=== PATIENT | male | born 1995 | race Caucasian/White ===

== ENCOUNTER 2024-10-04 11:58 | Inpatient (IN) | payer BC ==
[2024-10-04 12:34] LABS: #Basophils 0.06 10x3/uL (0.0-0.2); %Basophils 0.4 % (0.0-1.0); %Eosinophils 0.4 % (0.0-10.0); %Lymphocytes 12.6 % (21.0-51.0); %Monocytes 8.7 % (0.0-10.0); %Neutrophils 77.4 % (42.0-75.0); Hematocrit 45.6 % (42.0-52.0); Hemoglobin 14.3 g/dL (14.0-18.0); Mean Corpuscular HGB CONC 31.4 g/dL (32.0-36.0); Mean Corpuscular Hemoglobin 23.8 pg (27.0-31.0); Mean Platelet Volume 8.4 fL (7.4-10.4); Platelet Count 467 10x3/uL (130-400); RBC Distribution Width 13.9 % (11.5-14.5)
[2024-10-04 13:07] LABS: ALT (SGPT) 38 U/L (8-55); AST (SGOT) 25 U/L (5-34); Albumin 3.7 g/dL (3.5-5.0); Alkaline Phosphatase 109 U/L (40-110); Anion Gap 17 mmol/L (10-20); BUN (Urea Nitrogen) 11 mg/dL (8.9-20.6); Bilirubin, Total 0.3 mg/dL (0.2-1.2); Calc. Creatinine Clearance 0 mL/min (70-130); Calcium 10.2 mg/dL (7.8-10.44); Carbon Dioxide 23 mmol/L (22-29); Chloride 97 mmol/L (98-107); Estimated GFR 99; Globulin 6.1 g/dL (2.4-3.5); Glucose 95 mg/dL (70-105); Lipase 20 U/L (8-78); Magnesium 2.2 mg/dL (1.6-2.6); Protein, Total 9.8 g/dL (6.0-8.3); Sodium 132 mmol/L (136-145)
[2024-10-04] MEDS ORDERED: Cefepime 2 GM VIAL ONE (13:13)
[2024-10-04] MEDS ORDERED: Sodium Chloride 0.9% 100 ML ONE (13:13)
[2024-10-04] MEDS ORDERED: Lidocaine Viscous Sol 2% 15 ml UD Cup ONE (13:47)
[2024-10-04 15:09] LABS: HIV (1/2) Antibody/Antigen NONREACTIVE (NonReactive); HIV 1/2 INDEX 0.08 S/CO (<1.00)
[2024-10-04] MEDS ORDERED: Calcium Carbonate 500 MG ChewTAB PO PRN (15:13)
[2024-10-04] MEDS ORDERED: Ondansetron PF 4 MG/2 ML Vial IVP PRN (15:13)
[2024-10-04] MEDS ORDERED: Ondansetron ODT 4 MG TAB PO PRN (15:13)
[2024-10-04 15:20] LABS: Bacteria/HPF None Seen HPF (None Seen); Bilirubin Negative (Negative); Blood, Urine Negative (Negative); CAUTI Indications for Culture Fever or rigors; Clarity Clear (Clear); Glucose, Urine (Dipstick) Normal (Negative); Ketone, Urine 10 mg/dL (Negative); Leukocyte Negative Leu/uL (Negative); Nitrite Negative (Negative); Protein, Urine (Dipstick) 30 mg/dL (Neg-Trace); RBC/HPF 0-3 HPF (0-3); Specific Gravity, Urine 1.015 (1.002-1.036); Squamous Epithelial None Seen HPF (0-3); Urobilinogen Normal mg/dL (Less than 2); WBC/HPF 0-3 HPF (0-3); pH, Urine 5.5 (5.0-9.0)
[2024-10-04 15:23] LABS: Urine Culture Reflex No No
[2024-10-04 19:25] LABS: Syphilis Antibody Nonreactive (Nonreactive); Syphilis Antibody Index 0.16 S/CO (<1.00 Non-Reactive)
[2024-10-04 20:12] VITALS: BMI 23.3
[2024-10-04] MEDS: Nystatin 500,000 UNITS/5 ML UDCUP SSW SCH (20:29)
[2024-10-04] MEDS: Acetaminophen 325 MG TAB PO PRN (20:29)
[2024-10-04] MEDS: Lidocaine Viscous Sol 2% 15 ml UD Cup SSP PRN (20:31)
[2024-10-04] MEDS ORDERED: Vancomycin 1 GM in Sodium Chloride 0.9% 250 ML 250 ML IVPB SCH (21:00)
[2024-10-04] MEDS ORDERED: Benzocaine/Menthol 1 LOZ LOZ PO PRN (22:16)
[2024-10-04] MEDS ORDERED: GUAIFENESIN SF SOLN 200 MG/10 ML UDCUP PO PRN (22:16)
[2024-10-04] MEDS: Cefepime 2 GM in Sodium Chloride 0.9% 100 ML IVPB SCH (22:17)
[2024-10-04] MEDS: Sodium Chloride 0.9% 1,000 ML IV SCH (22:19)
[2024-10-04] MEDS: traMADol HCl 50 MG TAB PO PRN (22:28)
[2024-10-04] MEDS: Benzonatate 100 MG CAP PO PRN (22:28)
[2024-10-05] MEDS: VANCOMYCIN 1.25 GM/250 ML BAG 1.25 GM in Premix 1 BAG IVPB SCH (00:48)
[2024-10-05] MEDS: Ketorolac Tromethamine 30 MG (1 mL) VIAL IVP PRN (00:50)
[2024-10-05] MEDS: Vancomycin (BATCH) 1.75 GM in Premix 1 BAG IVPB SCH (01:09)
[2024-10-05] MEDS: Sodium Chloride 0.9% 1,000 ML IV SCH (01:10)
[2024-10-05] MEDS: Clindamycin/D5W 900 MG in Premix 1 BAG IVPB SCH (01:10)
[2024-10-05] MEDS: Lidocaine 2% Viscous Solution 10 ML, Aluminum & Magnesium Hydroxide 30 ML SSW SCH (01:11)
[2024-10-05 04:46] LABS: #Basophils 0.05 10x3/uL (0.0-0.2); %Basophils 0.4 % (0.0-1.0); %Lymphocytes 13.6 % (21.0-51.0); %Monocytes 9.4 % (0.0-10.0); Hematocrit 34.7 % (42.0-52.0); Hemoglobin 10.9 g/dL (14.0-18.0); Mean Corpuscular HGB CONC 31.4 g/dL (32.0-36.0); Mean Corpuscular Hemoglobin 24.1 pg (27.0-31.0); Mean Corpuscular Volume 76.8 fL (78.0-98.0); Mean Platelet Volume 8.6 fL (7.4-10.4); Platelet Count 324 10x3/uL (130-400); RBC Distribution Width 13.9 % (11.5-14.5); Red Blood Cell (RBC) Count 4.52 mill/uL (4.70-6.10)
[2024-10-05 04:56] LABS: Anion Gap 16 mmol/L (10-20); BUN (Urea Nitrogen) 9 mg/dL (8.9-20.6); Calc. Creatinine Clearance 160 mL/min (70-130); Calcium 8.3 mg/dL (7.8-10.44); Carbon Dioxide 17 mmol/L (22-29); Chloride 106 mmol/L (98-107); Estimated GFR 128; Glucose 76 mg/dL (70-105); Potassium 4.1 mmol/L (3.5-5.1); Sodium 135 mmol/L (136-145)
[2024-10-05 11:00] LABS: Chlam.trachomatis by PCR,Urine Not Detected (NotDetected); GC N.gonorrhoeae PCR,UrineVOID Not Detected (NotDetected)
[2024-10-05] MEDS ORDERED: Guaifenesin DM 100-10/5 ML UDCUP PO PRN (14:26)
[2024-10-05 14:29] VITALS: BMI 23.3
[2024-10-05] MEDS: Vancomycin (BATCH) 1.25 GM in Premix 1 BAG IVPB SCH (17:56)
[2024-10-05] MEDS: predniSONE 20 MG TAB PO SCH (17:57)
[2024-10-05] MEDS: Lidocaine Viscous Sol 2% 15 ml UD Cup SSP PRN (21:19)
[2024-10-05] MEDS: Melatonin 3 MG TAB PO PRN (21:20)
[2024-10-06 04:28] LABS: #Basophils Less than 0.03 10x3/uL (0.0-0.2); #Eosinophils Less than 0.03 10x3/uL (0.0-0.7); %Basophils 0.2 % (0.0-1.0); %Lymphocytes 10.4 % (21.0-51.0); %Monocytes 2.6 % (0.0-10.0); %Neutrophils 86.1 % (42.0-75.0); Hematocrit 35.6 % (42.0-52.0); Hemoglobin 11.2 g/dL (14.0-18.0); Mean Corpuscular HGB CONC 31.5 g/dL (32.0-36.0); Mean Corpuscular Hemoglobin 23.7 pg (27.0-31.0); Mean Corpuscular Volume 75.4 fL (78.0-98.0); Mean Platelet Volume 8.7 fL (7.4-10.4); Platelet Count 378 10x3/uL (130-400); RBC Distribution Width 13.9 % (11.5-14.5); Red Blood Cell (RBC) Count 4.72 mill/uL (4.70-6.10)
[2024-10-06 04:40] LABS: Vancomycin, Random 8.5 ug/mL (See Comment)
[2024-10-06 04:45] LABS: ALT (SGPT) 16 U/L (8-55); AST (SGOT) 9 U/L (5-34); Albumin 2.8 g/dL (3.5-5.0); Alkaline Phosphatase 70 U/L (40-110); Anion Gap 16 mmol/L (10-20); BUN (Urea Nitrogen) 5 mg/dL (8.9-20.6); Bilirubin, Total 0.2 mg/dL (0.2-1.2); Calc. Creatinine Clearance 170 mL/min (70-130); Carbon Dioxide 22 mmol/L (22-29); Chloride 104 mmol/L (98-107); Estimated GFR 131; Globulin 4.7 g/dL (2.4-3.5); Glucose 133 mg/dL (70-105); Potassium 3.9 mmol/L (3.5-5.1); Protein, Total 7.5 g/dL (6.0-8.3); Sodium 138 mmol/L (136-145)
[2024-10-06] MEDS: Vancomycin (BATCH) 1.5 GM in Premix 1 BAG IVPB SCH (05:53)
[2024-10-06] MEDS: Lidocaine 1% (PF) 30 ML VIAL SC SCH (17:13)
[2024-10-07] MEDS: Enoxaparin 40 MG (0.4 mL) SYRINGE SC SCH (08:48)
[2024-10-07 15:13] LABS: CMV IgM AB Less than 30.0 AU/mL (0.0-29.9)
[2024-10-07] MEDS: Pantoprazole DR 40 MG TAB PO SCH (17:22)
[2024-10-07] MEDS: Dexamethasone 0.5 MG/5 ML UDCUP FS SCH (17:24)
[2024-10-08 05:12] LABS: EBV VCA IgM <36.0 U/mL (0.0-35.9); Nuclear AG IgG (EBNA) AB <18.0 U/mL (0.0-17.9)
[2024-10-08 08:26] LABS: Ref Lab Test Ordered ANSER-ADA; Reference Lab Name PROMETHEUS
[2024-10-08] MEDS: predniSONE 20 MG TAB PO SCH (08:42)
[2024-10-08] MEDS: Pantoprazole DR 40 MG TAB PO SCH (08:42)
[2024-10-09 04:56] LABS: #Basophils 0.04 10x3/uL (0.0-0.2); #Eosinophils Less than 0.03 10x3/uL (0.0-0.7); %Basophils 0.4 % (0.0-1.0); %Eosinophils 0.2 % (0.0-10.0); %Lymphocytes 32.9 % (21.0-51.0); %Monocytes 5.7 % (0.0-10.0); %Neutrophils 59.9 % (42.0-75.0); Hematocrit 38.9 % (42.0-52.0); Mean Corpuscular HGB CONC 30.8 g/dL (32.0-36.0); Mean Corpuscular Hemoglobin 23.6 pg (27.0-31.0); Mean Corpuscular Volume 76.4 fL (78.0-98.0); Mean Platelet Volume 8.6 fL (7.4-10.4); Platelet Count 481 10x3/uL (130-400); Red Blood Cell (RBC) Count 5.09 mill/uL (4.70-6.10)
[2024-10-09 05:16] LABS: Anion Gap 14 mmol/L (10-20); BUN (Urea Nitrogen) 11 mg/dL (8.9-20.6); Calc. Creatinine Clearance 167 mL/min (70-130); Calcium 8.9 mg/dL (7.8-10.44); Carbon Dioxide 25 mmol/L (22-29); Chloride 105 mmol/L (98-107); Estimated GFR 130; Glucose 95 mg/dL (70-105); Potassium 3.7 mmol/L (3.5-5.1); Sodium 140 mmol/L (136-145)
[2024-10-09 15:38] LABS: Histoplasma Abs, Quant, DID Negative (Neg:<1:1)
[2024-10-10 07:25] VITALS: BP 117/75; TEMP 98.6
== END 2024-10-10 13:33 | disposition home or self-care (01) | DRG 872 ==
LOC: ERS 11:58 → 2NO 15:10 → T4-A 10-06 11:31
PROVIDERS: ADMIT Family Medicine; ATTEND Family Medicine
PROC: 0HB5XZX Excision of Chest Skin, External Approach, Diagnostic (ICD-10-PCS; principal; 2024-10-07)
DX: A41.9 Sepsis, unspecified organism (principal); K51.90 Ulcerative colitis, unspecified, without complications; E87.1 Hypo-osmolality and hyponatremia; L73.8 Other specified follicular disorders; L98.2 Febrile neutrophilic dermatosis [Sweet]
CPT/HCPCS: 36415; 71045; 80048; 80053; 80202; 81001; 83605; 83630; 83690; 83735; 84145; 84443; 85025; 86141; 86644; 86645; 86664; 86665; 86698; 86780; 87040; 87081; 87389; 87428; 87430; 87491; 87591; 87633; 88305; 93005; 96374; 96375; J0692; J1885; J3370; J3490; J7030; J7512